=== PATIENT | female | born 1995 | race Caucasian/White ===

== ENCOUNTER 2017-07-11 22:19 | Emergency (ER) | payer BC, OTHER ==
[~2017-07-11] VITALS: Ht 170.2 cm; Wt 64.0 kg
[2017-07-11 22:24] VITALS: Ht 170.2 cm; Wt 64.0 kg
[2017-07-12] MEDS ORDERED: TRAM50TA2 PO (00:48)
[2017-07-12] MEDS ORDERED: IBUP-1542 PO (00:48)
--- NOTE | 2017-07-12 00:51 | ERD ---
ER Documentation Chief Complaint Chief Complaint BIB SELF, CC: LEFT ARM BUMP X 3 DAYS, PAINFUL HPI This is a 21-year-old female who developed a painful bump on her left mid forearm for the past 3 days and she knows is getting slightly larger. No trauma. No fever. No redness. She has not taken any medications for pain. ROS All systems reviewed and are negative except as per history of present illness. Medications Home Meds Active Scripts Tramadol HCl (Tramadol HCl) 50 Mg Tablet, 50 MG PO Q4 Y for PAIN, #15 TAB Prov:CHUCKY GOFF PA-C 07/12/17 Ibuprofen* (Motrin*) 600 Mg Tab, 600 MG PO Q6, #30 TAB Prov:CHUCKY GOFF PA-C 07/12/17 Reported Medications [None] No Conflict Check 07/11/12 Allergies Allergies: Coded Allergies: No Known Allergy (Unverified , 07/11/12) PMhx/Soc History of Surgery: Yes (R OSTEO CYST REMOVED) Anesthesia Reaction: No Hx Neurological Disorder: No Hx Respiratory Disorders: No Hx Cardiac Disorders: No Hx Psychiatric Problems: Yes (NERVOUS AT TIMES) Hx Miscellaneous Medical Probl: No Hx Alcohol Use: No Hx Substance Use: No Hx Tobacco Use: No Smoking Status: Never smoker FmHx Family History: No diabetes Physical Exam Vitals Vital Signs Date Time Temp Pulse Resp B/P Pulse Ox O2 Delivery O2 Flow Rate FiO2 07/11/17 22:24 98.5 81 19 119/85 100 Physical Exam Const: [] Head: Atraumatic Eyes: Normal Conjunctiva Neck: Full range of motion..~ No meningismus. Resp: Clear to auscultation bilaterally Cardio: Regular rate and rhythm, no murmurs Skin: Ganglion cyst approximately 2 cm in diameter left mid forearm Procedures/MDM 21-year-old female presents with ganglion cyst on the left forearm. She was given a prescription for ibuprofen and tramadol for pain control. Patient counseled regarding my diagnostic impression and care plan. Prior to discharge all questions answered. Pt agrees with treatment plan and understands strict return precautions. Pt is instructed to follow up with primary care provider within 24-48 hours. Precautionary instructions provided including instructions to return to the ER if not improving or for any worsening or changing symptoms or concerns. Departure Diagnosis: Primary Impression: Ganglion cyst Condition: Stable Patient Instructions: Ganglion Cyst Additional Instructions: Call your primary care doctor TOMORROW for an appointment during the next 1-2 days.See the doctor sooner or return here if your condition worsens before your appointment time. CHUCKY GOFF PA-C Jul 12, 2017 00:51
== END 2017-07-12 01:22 | disposition left against medical advice (07) ==
LOC: FTE 22:19
DX: M67.442 Ganglion, left hand (principal)
CPT/HCPCS: 99283